=== PATIENT | male | born 1965 | race American Indian/Alaskan Native ===

== ENCOUNTER 2016-12-17 23:22 | Emergency (ER) | payer MEDICAID ==
[2016-12-17 23:36] VITALS: TEMP 97.3
--- NOTE | 2016-12-17 23:40 | EDPHY ---
H & P Smoking Status: Current every day smoker Time Seen by Provider: 12/17/16 23:29 HPI/ROS: This is a 49-year-old gentleman brought in by EMS. EMS reports patient was at the [facility] station staggering refuse to leave, police was called at the scene alcohol intoxication. Patient states he was just drinking alcohol slurred speech, answering my questions appropriately, oriented to person and place. Patient reports drinking a lot of alcohol today and smoking marijuana, denies the use of any drugs REVIEW OF SYSTEMS: Constitutional: No fever no chills Eyes: No eye pain ENT: No sore throat Respiratory: No shortness of breath Cardiac: No chest pain Gastrointestinal: No abdominal pain Musculoskeletal: No joint pain Skin: No rash Neurological: No headache Psych: (Maral Ellison) Past Medical/Surgical History: Alcohol intoxication, alcohol abuse (Maral Ellison) Physical Exam: CONSTITUTIONAL: patient appeared well nourished, non-ill appearing and normally developed. No acute distress. Vital signs as documented. HEENT: Normocephalic atraumatic PERRLA. Oropharynx normal, smell alcohol NECK: Supple FROM without pain RESP: Non-labored resp effort, airway patent, CTAB CARDIAC: RRR w/o murmur, annalise. GI: Abd soft NTTP NEURO: Ambulatory with gait disturbance, oriented to person and place with slurred speech EXTREMITIES: FROM without pain or difficulty. Positive cms intact SKIN: Warm and dry, no lacerations no abrasion Psych: No agitation (Maral Ellison) Constitutional: Initial Vital Signs Temperature (C) 36.3 C 12/17/16 23:22 Heart Rate 87 12/17/16 23:22 Respiratory Rate 20 12/17/16 23:22 Blood Pressure 111/74 12/17/16 23:22 O2 Sat (%) 94 12/17/16 23:22 O2 Delivery Mode Room Air O2 (L/minute) 2 Allergies/Adverse Reactions: ibuprofen Allergy (Verified 12/17/16 23:33) Home Medications: Medication Instructions Recorded NK [No Known Home Meds] 07/20/15 Medical Decision Making ED Course/Re-evaluation: Alcohol intoxication, patient here for sober evaluation when clinically sober patient will go to the [facility] 0120: Patient ambulatory without assist, appropriate for the [facility] sent with Librium (Maral Ellison) Differential Diagnosis: Differential diagnosis considered but not limited to hypoglycemia, head injury and other drug intoxication (Maral Ellison) Other Provider: PHYSICIAN DOCUMENTATION: The patient was evaluated and managed by the Physician Med Surg Rn. My co- signature indicates that I have reviewed this chart and I agree with the findings and plan of care as documented. I am the secondary supervising physician. 4:30 a.m.- The patient was able to walk with a steady gait and was [facility]. (Jody Boyer) - Data Points Medications Given: Discontinued Medications Chlordiazepoxide (Librium 25 Mg Prepack#6) 1 btl TAKEHOME EDNOW ONE Stop: 12/18/16 01:18 Last Admin: 12/18/16 04:25 Dose: 1 btl Departure - Departure Disposition: Home, Routine, Self-Care Clinical Impression: Alcohol intoxication Qualifiers: Complication of substance-induced condition: uncomplicated Qualified Code(s): F10.120 - Alcohol abuse with intoxication, uncomplicated Condition: Good Instructions: Alcohol Intoxication (ED), Abuse of Alcohol (ED), Alcohol Dependence (ED) Additional Instructions: 1. Stop drinking alcohol 2. [facility] Referrals: Patient,NotPresent [Unknown] - As per Instructions [facility],. [Clinic] - As per Instructions
[2016-12-18] MEDS ORDERED: CHLORDIAZEPOXIDE 25MG PREPK#6 BTL TAKEHOME ONE ×2 (01:17→04:24)
[2016-12-18 05:01] VITALS: BP 118/67; PULSE 98; RESP 16; O2SAT 93
== END 2016-12-18 05:01 | disposition home or self-care (01) ==
LOC: EDUNIT#
DX: F10.120 Alcohol abuse with intoxication, uncomplicated (principal); F17.200 Nicotine dependence, unspecified, uncomplicated

== ENCOUNTER 2017-01-05 01:27 | Emergency (ER) | payer MEDICAID ==
[2017-01-05 01:37] VITALS: RESP 16; O2SAT 96
[2017-01-05] MEDS ORDERED: CHLORDIAZEPOXIDE 25MG PREPK#6 BTL TAKEHOME ONE (01:38)
[2017-01-05] MEDS ORDERED: chlordiazePOXIDE 25 MG CAP PO ONE (01:38)
--- NOTE | 2017-01-05 02:32 | EDPHY ---
H & P Stated Complaint: librium request per [facility] staff HPI/ROS: Chief Complaint: Alcohol withdrawal HPI: 51 year old male with a history of chronic alcoholism presenting from the [facility] with withdrawal like symptoms. Last drink was yesterday. No fevers or chills. No cough. No falls. No head injury. No nausea or vomiting. Feels he is in his normal state health. ROS: 10 point Review of Systems is negative except as noted in the HPI. PMH: Chronic alcoholism, alcoholic liver disease Social History: Positive for smoking, daily alcohol Family History: non-contributory Physical Exam: Gen: Awake, Alert, No Distress HEENT: Nose: no rhinorrhea Eyes: PERRLA, EOMI Mouth: Moist mucosa Neck: Supple, no JVD Chest: nontender, lungs clear to auscultation Heart: S1, S2 normal, no murmur Abd: Soft, non-tender, no guarding Back: no CVA tenderness, no midline tenderness Ext: no edema, non-tender Skin: no rash Neuro: CN II-XII intact, Sensation grossly intact, Strength 5/5 in bilateral upper and lower extremities - Personal History Current Tetanus Diphtheria and Acellular Pertussis (TDAP): Unsure - Medical/Surgical History Hx Asthma: No Hx Chronic Respiratory Disease: No Hx Diabetes: No Hx Cardiac Disease: No Hx Renal Disease: No Hx Cirrhosis: No Hx Alcoholism: No Hx HIV/AIDS: No Hx Splenectomy or Spleen Trauma: No Other PMH: hernia, alcoholism - Social History Smoking Status: Current every day smoker Constitutional: Initial Vital Signs Temperature (C) 36.6 C 01/05/17 01:33 Heart Rate 91 01/05/17 01:33 Respiratory Rate 16 01/05/17 01:33 Blood Pressure 144/74 H 01/05/17 01:33 O2 Sat (%) 96 01/05/17 01:33 O2 Delivery Mode Room Air Allergies/Adverse Reactions: ibuprofen Allergy (Verified 01/05/17 01:33) Home Medications: Medication Instructions Recorded NK [No Known Home Meds] 07/20/15 Medical Decision Making ED Course/Re-evaluation: Patient is feeling improved. He is resting comfortably. Easily arousable. No clinical signs of alcohol jaw at this time. Will [facility] to the [facility] her with Librium. - Data Points Medications Given: Discontinued Medications Chlordiazepoxide (Librium 25 Mg Prepack#6) 1 btl TAKEHOME EDNOW ONE Stop: 01/05/17 01:39 Last Admin: 01/05/17 01:42 Dose: 1 btl Chlordiazepoxide HCl (Librium) 50 mg PO EDNOW ONE Stop: 01/05/17 01:39 Last Admin: 01/05/17 01:40 Dose: 50 mg Departure - Departure Disposition: Home, Routine, Self-Care Clinical Impression: Alcohol withdrawal Condition: Good Instructions: Alcohol Withdrawal (ED) Additional Instructions: Return to the emergency depart for increasing tremors, seizures, uncontrolled vomiting, or any other concerns. Referrals: [facility] [Other] - As per Instructions
[2017-01-05 02:42] VITALS: BP 144/66; PULSE 81; TEMP 98.2
== END 2017-01-05 02:42 | disposition home or self-care (01) ==
LOC: EDUNIT#
DX: F10.239 Alcohol dependence with withdrawal, unspecified (principal); F17.200 Nicotine dependence, unspecified, uncomplicated

== ENCOUNTER 2017-12-20 14:38 | Emergency (ER) | payer MEDICAID ==
[2017-12-20] MEDS ORDERED: NS 1,000 ML IV ONE (15:48)
[2017-12-20] MEDS ORDERED: HYDROmorphONE/DILAUDID 2 MG/ML INJ IVP ONE (15:48)
--- NOTE | 2017-12-20 15:51 | EDPHY ---
H & P Stated Complaint: r inguinal hernia for years thinks it is twisted Time Seen by Provider: 12/20/17 15:42 HPI/ROS: CHIEF COMPLAINT: Hernia HISTORY OF PRESENT ILLNESS: Patient is a 52-year-old alcoholic homeless man who comes to the emergency department from the clinic complaining of right inguinal pain. He has a hernia there that he states occasionally protrudes but today it is painful. They are concerned about incarceration. He denies other complaints. REVIEW OF SYSTEMS: Constitutional: denies: chills, fever, recent illness, recent injury EENTM: denies: blurred vision, double vision, nose congestion Respiratory: denies: cough, shortness of breath Cardiac: denies: chest pain, irregular heart rate, lightheadedness, palpitations Gastrointestinal/Abdominal: denies: abdominal pain, diarrhea, nausea, vomiting, blood streaked stools Genitourinary: See HPI denies: dysuria, frequency, hematuria, pain Musculoskeletal: denies: joint pain, muscle pain Skin: denies: lesions, rash, jaundice, bruising Neurological: denies: headache, numbness, paresthesia, tingling, dizziness, weakness Hematologic/Lymphatic: denies: blood clots, easy bleeding, easy bruising Immunologic/allergic: denies: HIV/AIDS, transplant EXAM: GENERAL: Well-appearing, well-nourished and in no acute distress. HEAD: Atraumatic, normocephalic. EYES: Pupils equal round and reactive to light, extraocular movements intact, sclera anicteric, conjunctiva are normal. ENT: TMs normal, nares patent, oropharynx clear without exudates. Moist mucous membranes. NECK: Normal range of motion, supple without lymphadenopathy or JVD. LUNGS: Breath sounds clear to auscultation bilaterally and equal. No wheezes rales or rhonchi. HEART: Regular rate and rhythm without murmurs, rubs or gallops. ABDOMEN: Soft, nontender, normoactive bowel sounds. No guarding, no rebound. No masses appreciated. Right inguinal hernia, does not extend into the scrotum. Tender to palpation but soft. BACK: No CVA tenderness, no spinal tenderness, step-offs or deformities EXTREMITIES: Normal range of motion, no pitting or edema. No clubbing or cyanosis. NEUROLOGICAL: Cranial nerves II through XII grossly intact. Normal speech, normal gait. 5/5 strength, normal movement in all extremities, normal sensation PSYCH: Normal mood, normal affect. SKIN: Warm, dry, normal turgor, no visible rashes or lesions. Source: Patient Exam Limitations: No limitations - Personal History Current Tetanus/Diphtheria Vaccine: No - Medical/Surgical History Hx Asthma: No Hx Chronic Respiratory Disease: No Hx Diabetes: No Hx Cardiac Disease: No Hx Renal Disease: No Hx Cirrhosis: No Hx Alcoholism: No Hx HIV/AIDS: No Hx Splenectomy or Spleen Trauma: No Other PMH: hernia, alcoholism - Family History Significant Family History: No pertinent family hx - Social History Smoking Status: Former smoker Alcohol Use: Sober Drug Use: None Constitutional: Initial Vital Signs Temperature (C) 36.8 C 12/20/17 14:45 Heart Rate 96 12/20/17 14:45 Respiratory Rate 18 12/20/17 14:45 Blood Pressure 117/76 12/20/17 14:45 O2 Sat (%) 92 12/20/17 14:45 O2 Delivery Mode Room Air Allergies/Adverse Reactions: ibuprofen Allergy (Verified 12/20/17 14:44) Home Medications: Medication Instructions Recorded NK [No Known Home Meds] 07/20/15 Medical Decision Making ED Course/Re-evaluation: 4:30 p.m. The patient has been able to reduce the hernia himself. He is ready to go home and declines further workup or testing. I will refer him to surgery for elective repair. Differential Diagnosis: Partial list of the Differential diagnosis considered include but were not limited to; inguinal hernia, incarceration, obstruction and although unlikely based on the history and physical exam, I also considered ischemia, infection, rupture, torsion. I discussed these differential diagnoses and the plan with the patient as well as the usual and expected course. The patient understands that the diagnosis is provisional and that in medicine we are not always correct and that further workup is often warranted. Usual and customary warnings were given. All of the patient's questions were answered. The patient was instructed to return to the emergency department should the symptoms at all worsen or return, otherwise to followup with the physician as we discussed. - Data Points Laboratory Results: Laboratory Results 12/20/17 16:16 12/20/17 16:16 12/20/17 12/20/17 16:16 16:16 WBC 5.58 10^3/uL 10^3/uL (3.80-9.50) RBC 4.21 10^6/uL L 10^6/uL (4.40-6.38) Hgb 12.1 g/dL L g/dL (13.7-17.5) Hct 37.4 % L % (40.0-51.0) MCV 88.8 fL fL (81.5-99.8) MCH 28.7 pg pg (27.9-34.1) MCHC 32.4 g/dL g/dL (32.4-36.7) RDW 18.1 % H % (11.5-15.2) Plt Count 197 10^3/uL 10^3/uL (150-400) MPV 8.8 fL fL (8.7-11.7) Neut % (Auto) 42.1 % % (39.3-74.2) Lymph % (Auto) 45.7 % H % (15.0-45.0) Grainger % (Auto) 8.1 % % (4.5-13.0) Eos % (Auto) 3.0 % % (0.6-7.6) Baso % (Auto) 0.7 % % (0.3-1.7) Nucleat RBC Rel Count 0.0 % % (0.0-0.2) Absolute Neuts (auto) 2.35 10^3/uL 10^3/uL (1.70-6.50) Absolute Lymphs (auto) 2.55 10^3/uL 10^3/uL (1.00-3.00) Absolute Monos (auto) 0.45 10^3/uL 10^3/uL (0.30-0.80) Absolute Eos (auto) 0.17 10^3/uL 10^3/uL (0.03-0.40) Absolute Basos (auto) 0.04 10^3/uL 10^3/uL (0.02-0.10) Absolute Nucleated RBC 0.00 10^3/uL 10^3/uL (0-0.01) Immature Gran % 0.4 % % (0.0-1.1) Immature Gran # 0.02 10^3/uL 10^3/uL (0.00-0.10) Sodium 142 mEq/L mEq/L (135-145) Potassium 4.0 mEq/L mEq/L (3.5-5.2) Chloride 107 mEq/L mEq/L (97-110) Carbon Dioxide 23 mEq/l mEq/l (22-31) Anion Gap 12 mEq/L mEq/L (8-16) BUN 8 mg/dL mg/dL (7-23) Creatinine 0.7 mg/dL mg/dL (0.7-1.3) Estimated GFR > 60 Glucose 93 mg/dL mg/dL (70-100) Calcium 8.6 mg/dL mg/dL (8.5-10.4) Medications Given: Discontinued Medications Hydromorphone HCl (Dilaudid) 1 mg IVP EDNOW ONE Stop: 12/20/17 15:49 Last Admin: 12/20/17 16:15 Dose: 1 mg Sodium Chloride (Ns) 1,000 mls @ 0 mls/hr IV EDNOW ONE; Wide Open PRN Reason: Protocol Stop: 12/20/17 15:49 Last Admin: 12/20/17 16:16 Dose: 1,000 mls Departure - Departure Disposition: Home, Routine, Self-Care Clinical Impression: Inguinal hernia, right Alcohol intoxication Qualifiers: Complication of substance-induced condition: uncomplicated Qualified Code(s): F10.920 - Alcohol use, unspecified with intoxication, uncomplicated Condition: Fair Instructions: Inguinal Hernia (ED) Referrals: NONE *PRIMARY CARE P,. [Primary Care Provider] - As per Instructions Andrea Christensen MD [Medical Doctor] - As per Instructions
[2017-12-20 16:28] LABS: PLATELET COUNT 197 10^3/uL (150-400)
[2017-12-20 17:07] VITALS: BP 119/83
== END 2017-12-20 16:59 | disposition home or self-care (01) ==
DX: K40.90 Unilateral inguinal hernia, without obstruction or gangrene, not specified as recurrent (principal); F10.920 Alcohol use, unspecified with intoxication, uncomplicated; E86.9 Volume depletion, unspecified; Z87.891 Personal history of nicotine dependence
CPT/HCPCS: 96374; J1170

== ENCOUNTER 2018-11-22 22:37 | Emergency (ER) | payer MEDICAID ==
[2018-11-22] MEDS ORDERED: ACETAMINOPHEN 500 MG TAB PO ONE (22:43)
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
[2018-11-23] MEDS ORDERED: CHLORDIAZEPOXIDE 25MG PREPK#6 BTL TAKEHOME ONE (01:49)
[2018-11-23 02:12] VITALS: BP 131/74
== END 2018-11-23 02:12 | disposition home or self-care (01) ==
LOC: EDUNIT#
DX: K40.90 Unilateral inguinal hernia, without obstruction or gangrene, not specified as recurrent (principal); F10.920 Alcohol use, unspecified with intoxication, uncomplicated; Z87.891 Personal history of nicotine dependence; Z59.0 Homelessness